=== PATIENT | male | born 1980 | race Caucasian/White ===

== ENCOUNTER → 2016-11-11 | Outpatient (CLI) | payer BC ==
--- NOTE | 2016-11-11 10:35 | DIAGNOSTIC IMAGING REPORT ---
LEFT TIBIA AND FIBULA 2 VIEWS CLINICAL HISTORY: Left leg pain. FINDINGS: AP and lateral views of the left tibia and fibula are obtained. No prior studies are available for comparison at the time of dictation. The skeletal structures are well mineralized. No fracture is seen. The knee and ankle joints are grossly maintained. The overlying soft tissues are within normal limits. IMPRESSION: No acute bony abnormality is seen in the left tibia or fibula. Electronically signed by: Greg Markham M.D. 11/11/2016 10:34 AM Dictated Date/Time: 11/11/2016 10:33 AM
== END | disposition home or self-care (01) ==
LOC: C.RAD 09:51
PROVIDERS: ATTEND Nurse Practitioner Family
DX: M89.8X6 Other specified disorders of bone, lower leg (principal)

== ENCOUNTER → 2016-11-14 | Outpatient (CLI) | payer BC ==
--- NOTE | 2016-11-14 15:43 | DIAGNOSTIC IMAGING REPORT ---
LEFT KNEE 1 OR 2 VIEWS, LEFT TIBIA/FIBULA 2 VIEWS CLINICAL HISTORY: LEFT KNEE AND LOWER LEG PAIN COMPARISON STUDY: Left knee 11/05/2014. Left tib-fib 11/11/2016. FINDINGS: Single lateral view of the left knee and AP and oblique views of the left tibia/fibula were submitted. No significant knee effusion. Soft tissues are unremarkable. No radiopaque foreign bodies. No fracture or dislocation. Cartilage spaces are maintained for age. IMPRESSION: No significant abnormality within the left knee or left lower leg. Electronically signed by: Speedy Panda M.D. 11/14/2016 3:42 PM Dictated Date/Time: 11/14/2016 3:36 PM
== END | disposition home or self-care (01) ==
LOC: C.RDSM 11:31
PROVIDERS: ATTEND Family Medicine
DX: M89.8X6 Other specified disorders of bone, lower leg (principal)

== ENCOUNTER → 2017-03-31 | Outpatient (CLI) | payer BC ==
--- NOTE | 2017-03-31 12:21 | DIAGNOSTIC IMAGING REPORT ---
MRI LEFT TIBIA WITHOUT IV CONTRAST CLINICAL HISTORY: Left leg pain. COMPARISON STUDY: Radiographs of the left tibia and fibula dated 11/14/2016. TECHNIQUE: MRI of the left tibia is performed utilizing various T1 and T2-weighted sequences in the axial, sagittal, and coronal planes. IV contrast was not administered for this examination. FINDINGS: Normal marrow signal intensity is preserved throughout the tibia and fibula. There is no MRI evidence of stress fracture. A cutaneous marker has been placed along the anterior aspect of the proximal tibia at the site of the patellar tendon insertion. No underlying abnormality is identified. The patellar tendon is intact as imaged. Lateral patellar tilt is incidentally noted. The musculature of the calf is normal in bulk and signal intensity. The Achilles tendon is normal as visualized. IMPRESSION: No bony abnormality is identified. The left tibia is normal in appearance. Dictated: 03/31/2017 12:04 PM Transcribed: 03/31/2017 12:21 PM [facility] Electronically signed by: Greg Markham M.D. 03/31/2017 12:24 PM Dictated Date/Time: 03/31/2017 12:04 PM
== END | disposition home or self-care (01) ==
LOC: C.MRI 11:12
PROVIDERS: ATTEND Family Medicine
DX: M89.8X6 Other specified disorders of bone, lower leg (principal)